=== PATIENT | female | born 1990 | race Caucasian/White ===

== ENCOUNTER 2018-09-02 17:26 | Inpatient (IN) | payer MEDICAID ==
[~2018-09-02] VITALS: Ht 160 cm; Wt 95.5 kg
[2018-09-14] MEDS ORDERED: ZOLOFT 100MG100 MG PO (15:41)
[2018-09-14] MEDS ORDERED: PRENATAL PO (15:41)
[2018-09-14] MEDS ORDERED: PRIL40 PO (15:42)
[2018-10-24] VITALS (52 sets, daily range): BP systolic 91–136; BP diastolic 50–94; PULSE 71–109; TEMP 97.7–99.2
[2018-10-24] MEDS ORDERED: UNISOM25 MG PO (07:20)
--- NOTE | 2018-10-24 07:24 | NUR ---
0700 PT ARRIVES AMB FOR INDUCTION OF LABOR BY DR HINES. GOWN ON AND TO BED WITH MONITORS PLACED, ASSESSMENT STARTED AND PLAN OF CARE DISCUSSE WITH PT.
[2018-10-24 08:44] LABS: BASO % 0.3 % (0.0-2.0); EOS # 0.1 (0.0-0.7); EOS % 0.9 % (0-4.0); GRAN # 7.6 (1.4-6.5); GRAN % 72.8 % (42.2-75.2); HEMOGLOBIN 11.4 g/dl (12.5-16.0); LYMPH # 1.8 (1.2-3.4); LYMPH % 17.3 % (20.0-51.0); MEAN CELL VOLUME 87 fl (80.0-100.0); MEAN CORPUSCULAR HEMOGLOBIN 29 pg (27.0-31.0); MEAN CORPUSCULAR HGB CONC 33 g/dl (33.0-37.0); MEAN PLATELET VOLUME 10.3 fl (7.4-10.4); MONO # 0.9 (0.1-0.6); MONO % 8.2 % (1.7-9.3); PLATELET COUNT 193 K/mm3 (130-400); RED BLOOD COUNT 3.96 M/mm3 (4.10-5.30); REDCELL DISTRIBUTION WIDTH-CV 14.1 % (11.5-14.5)
[2018-10-24 08:45] LABS: HEMATOCRIT 34.5 % (37.0-47.0)
--- NOTE | 2018-10-24 09:01 | NUR ---
0745 IV STARTED AND PEN AND PITOCIN ALSO STARTED AND IFUSING PER PROTOCOL.
--- NOTE | 2018-10-24 09:06 | NUR ---
0820 DR HINES HERE, AROM ATTEMPTED BUT NO RETURN OF FLUID NOTED. LIMITED US PERFOMRED TO COMFIRM VERTEX PRESENTATION. 0830 PT CALLS OUT WITH GUSH OF FLUID. PADS CHANGED AND MD INFORMED OF DEFINITE ROM.
[2018-10-24 09:08] LABS: TRICYCLIC ANTIDEPRESS URINE NEGATIVE
--- NOTE | 2018-10-24 09:26 | NUR ---
0915 ASSISTED TO BR AND CONTINUES TO LEAK CLEAR FLUID.
--- NOTE | 2018-10-24 09:48 | NUR ---
1944 RESTING QUIETLY DENIES NEEDS. RPEOSITIONED TO SIDE
--- NOTE | 2018-10-24 10:28 | NUR ---
1015 REPOSITIONED TO LL SIDE AND PADS CHANGED AGAIN. CONTINUES TO LEAK LARGE AMOUNT CLEAR FLUID.
--- NOTE | 2018-10-24 10:59 | NUR ---
1030 pitocin increased to 18. pt denies strong contractions, rate pain at a 1. family in room to see pt.,
--- NOTE | 2018-10-24 11:12 | NUR ---
1100 PITCOIN INCREASED TO 20 AND PT IS SITTING UPRIGHT IN BED. STATES STARTING TO HAVE MORE DISCOMFORT FROM CONTRACTIONS.
--- NOTE | 2018-10-24 12:21 | NUR ---
1130 PITOCIN INCREASED TO 22 mU/MIN.
--- NOTE | 2018-10-24 12:23 | NUR ---
1145 UP TO VOID AND THEN BACK TO BED., BRETHING WELL WITH EACH CONTRACTION AND MORE UNCOMFORTABLE. PT QUESTIONS PAIN OPTIONS OTHER THAN EPIDURAL. TAQUERIA EXPLAINED.
--- NOTE | 2018-10-24 14:19 | NUR ---
1240 PT REQUESTING STADOL FOR CONTROL OF PAIN. 1245 STAD[address] HINES ORDERS.
--- NOTE | 2018-10-24 14:21 | NUR ---
1300 PT HAS HAD VERY LITTLE RELIEF FROM STADOL DOSE. REQUESTING EPIDRUAL PLACEMENT AT THIS TIME. 1305 [employer] NOTIFIED OF PT REQUEST.
--- NOTE | 2018-10-24 14:22 | NUR ---
1315 WINDOW AND SIDING CRAFTSMAN IN ROOMAND POT REPOSITIONED SITTING AT EDGE OF BED. VERBALIZES UNDERSTANDING OF EPIDURAL CATH PLACEMENT QAND ACCEPTANCE FO SAME
--- NOTE | 2018-10-24 14:25 | NUR ---
1328 TEST DOSE GIVENAND TOLERATED WELL BY PT.
--- NOTE | 2018-10-24 14:26 | NUR ---
1345 RESTING AND MORE COMFORTABLE. ENCOURAGED TO REST/SLEEP IF ABLE. LIGHTS DIMMED AND ROOM QUIET.
--- NOTE | 2018-10-24 14:39 | NUR ---
1350 HEART RATE DOWN TO 90 WITH NO RETURN TO BASELINE WITH CONTRACTIONS. TO LEFT SIDE, PITOCIN OFF AND O2 ON PER NC. IV FLUID BOLUS. 1355 SVE SHOWS CHANGE TO 4-5 CM. FSE PLACED WITH GOOD TRACING OBTAINED. 1400 GOOD RETURN TO BASELINE AND ACCELERATIONS NOTED.
--- NOTE | 2018-10-24 14:45 | NUR ---
1415 IFETAL TRACING CONTINUES TO BE REACTIVE.
--- NOTE | 2018-10-24 14:46 | NUR ---
[address] HINES VIA CELL PHONE. REPORT OF RECENTS ISSUES AND ORDERS TO RESTART PITOCIN A 20. 1430 PITOCIN RESTARTED VIA ORDERS. O2 OFF/ VISITS WITH FAMILY.
--- NOTE | 2018-10-24 15:38 | NUR ---
1500 VISITS WITH FAMILY MEMBERS
--- NOTE | 2018-10-24 15:42 | NUR ---
1515 MCNAIR CATH PLACED EASILY WITH RETRUN OF CLEAR YELLOW URINE. STARTEING TO HAVE INCREASED BLOODY SHOW. KNOWS WHEN HAVING CONTRACTIONS BUT NOT PAINFUL.
--- NOTE | 2018-10-24 15:44 | NUR ---
1525 HEART RATE DOWN AFTER MCNAIR CATH PLACED. REPOSITIONEDNA ND O2 BACK ON A 8L/MASK. HAS GOOD VARIABILITY. PITOCIN OFF. 1530 HEART IMPROVED. PIT REMAINS OFF.
--- NOTE | 2018-10-24 16:14 | NUR ---
1550 HEART RATE REMAINS IN MID 110'S. DR HINES ON UNIT IN TO SEE PT AND SVE PERFORMED. 1600 PEN G DOSES #3 HUNG AND EPHEDERINE 10 MG IVP FOR LOWER BP.
--- NOTE | 2018-10-24 17:06 | NUR ---
1630 HEART RATE DIP AGAIN. REPOSITIONED TO RL MYNOR EWITH PEANUT BALL IN PLACE. BP STILL RUNNING LOWER SO EPHEDRINE 10 MG SIVP GIVEN
--- NOTE | 2018-10-24 17:21 | NUR ---
1700 DR HINES IN TO CHECK PT. SVE SHOWS GOOD CHANGE.
--- NOTE | 2018-10-24 17:26 | NUR ---
1715 RESTING WELL WITH FAMILY IN ROOM. DENIES PAIN. PITOCIN INCREASED TO 18.
--- NOTE | 2018-10-24 19:12 | NUR ---
1729 DR HINES IN TO DO SVE, NOW 8 CM. 1730 FHR DOWN TO 80-90'S, PT REPOSIIONED TO RT SIDE THEN BACK TO LT WITH NO CHANGE IN FHR. PITOCIN OFF, O2 REMAINS, IMPROVED WITH SCALP STIM. IV FLUIDS INCREASED. 1738 NO CHANGE IN FHR. CALLED, ADDITIONAL RN IN ROOM AND PT CLIPPED QUICKLY AND THEN TRANSFER VIA BED TO OR AT 1741 PER MONITOR STRIP TIME.
[2018-10-24] MEDS ORDERED: PERCOCET 325 MG1 TA2 PO (19:26)
[2018-10-24] MEDS ORDERED: MOTRIN 800800 MG/TAB PO (19:26)
--- NOTE | 2018-10-24 22:00 | NUR ---
183- Bedside report from DAY Wallace. Patient in PACU after fresh C/S. 1899- Patient to room 211 via bed. VSS. Bleeding WNL. 191- PP Recovery charting begins. 1999- Patient is uncomfortable during fundal checks. See eMAR. 2199- End of PP Recovery charting. VSS. Bleeding WNL. Peripad changed. Fundus firm and at the umbilicus. Abdomen noted to be firm. Patient remains uncomfortable during fundal checks. Epidural catheter removed. Patient tolerated well.
[2018-10-25] VITALS: BP 111/67; PULSE 80; TEMP 97.3
[2018-10-25 04:00] VITALS: BP 116/71; PULSE 88; TEMP 97.7
[2018-10-25 09:01] VITALS: BP 109/67; PULSE 75; TEMP 98.6
[2018-10-25 09:33] LABS: HEMOGLOBIN 10.2 g/dl (12.5-16.0)
[2018-10-25 16:35] VITALS: BP 112/75; PULSE 89; TEMP 97.7
[2018-10-25 20:45] VITALS: BP 90/57; PULSE 83; TEMP 97.8
[2018-10-26 07:29] VITALS: BP 100/55; PULSE 79; TEMP 98.1
[2018-10-26 15:53] VITALS: BP 102/64; PULSE 86; TEMP 98.8
[2018-10-26 21:15] VITALS: BP 113/76; PULSE 89; TEMP 98.5
[2018-10-27 08:00] VITALS: BP 114/79; PULSE 83; TEMP 97.9
--- NOTE | 2018-10-27 08:00 | NUR ---
Rests in bed, alert. Request pain medication. 814 Percocet 5/325 mg two given as ordered and per request.
--- NOTE | 2018-10-27 11:06 | NUR ---
Initial visit; Parents thanked Pin Drafting Machine Tender for offering congratulations and God's blessings for the of their son. Pin [employer]ing [employer] Tender thanked them for choosing [facility].
--- NOTE | 2018-10-27 12:00 | NUR ---
Rests in bed, alert. Denies any needs at this time.
--- NOTE | 2018-10-27 17:30 | NUR ---
Discharge instructions given. Verbalizes understanding. Percocet 5/325 mg two given per request and as ordered.
--- NOTE | 2018-10-27 18:30 | NUR ---
Ibuprofen 800 mg p.o., mylicon 160 mg given as ordered and per request.
== END 2018-10-27 18:35 | disposition home or self-care (01) | DRG 788 ==
LOC: EDSTATUS 10-15 06:21 → LDRO 10-15 17:25 → LDR 10-23 06:23 → OB 10-24 07:03 → LDR 10-24 07:03 → OB 10-24 19:00
PROVIDERS: ADMIT Obstetrics & Gynecology
PROC: 10D00Z1 Extraction of Products of Conception, Low, Open Approach (ICD-10-PCS; principal; 2018-10-24)
PROC: 3E033VJ Introduction of Other Hormone into Peripheral Vein, Percutaneous Approach (ICD-10-PCS; 2018-10-24)
PROC: 10907ZC Drainage of Amniotic Fluid, Therapeutic from Products of Conception, Via Natural or Artificial Opening (ICD-10-PCS; 2018-10-24)
DX: O48.0 Post-term pregnancy (principal); O76 Abnormality in fetal heart rate and rhythm complicating labor and delivery; Z3A.41 41 weeks gestation of pregnancy; Z37.0 Single live birth; O75.89 Other specified complications of labor and delivery; O99.824 Streptococcus B carrier state complicating childbirth; O69.2XX0 Labor and delivery complicated by other cord entanglement, with compression, not applicable or unspecified; O99.344 Other mental disorders complicating childbirth; F41.9 Anxiety disorder, unspecified; K58.9 Irritable bowel syndrome, unspecified; O99.214 Obesity complicating childbirth; F41.1 Generalized anxiety disorder; F41.0 Panic disorder [episodic paroxysmal anxiety]
CPT/HCPCS: J0595; J0690; J1885; J2270; J2540; J2590; J2704; J3010; J7120

== ENCOUNTER 2018-09-14 15:17 | Outpatient (CLI) | payer MEDICAID ==
[~2018-09-14] VITALS: Ht 165.1 cm; Wt 92.3 kg
[2018-09-14 15:33] VITALS: BP 121/76; PULSE 80; TEMP 98
[2018-09-14] MEDS ORDERED: ZOLOFT 100MG100 MG PO (15:41)
[2018-09-14] MEDS ORDERED: PRENATAL PO (15:41)
[2018-09-14] MEDS ORDERED: PRIL40 PO (15:42)
[2018-09-14 17:15] VITALS: BP 108/66; PULSE 82
== END 2018-09-14 17:15 | disposition home or self-care (01) ==
LOC: LDRO 15:17 → LDR 15:25 → LDRO 17:15
DX: O26.893 Other specified pregnancy related conditions, third trimester (principal); R25.2 Cramp and spasm; Z3A.35 35 weeks gestation of pregnancy
CPT/HCPCS: OP

== ENCOUNTER 2020-01-06 08:51 | Inpatient (IN) | payer MEDICAID ==
[~2020-01-06 08:51] MED LIST: MOTRIN 800800 MG/TAB PO; PERCOCET 325 MG1 TA2 PO; PRENATAL PO; PRIL40 PO; UNISOM25 MG PO; ZOLOFT 100MG100 MG PO
[2020-01-07] VITALS (19 sets, daily range): BP systolic 87–119; BP diastolic 57–80; PULSE 72–107; TEMP 98.4–98.8
[2020-01-07 06:36] LABS: BASO # 0.1 (0.0-0.2); BASO % 0.5 % (0.0-2.0); EOS # 0.1 (0.0-0.7); EOS % 0.7 % (0-4.0); GRAN # 7.2 (1.4-6.5); GRAN % 70.4 % (42.2-75.2); LYMPH # 2.1 (1.2-3.4); LYMPH % 20.6 % (20.0-51.0); MEAN CELL VOLUME 86 fl (80.0-100.0); MEAN CORPUSCULAR HEMOGLOBIN 29 pg (27.0-31.0); MEAN CORPUSCULAR HGB CONC 34 g/dl (33.0-37.0); MEAN PLATELET VOLUME 10.3 fl (7.4-10.4); MONO # 0.7 (0.1-0.6); MONO % 7.2 % (1.7-9.3); PLATELET COUNT 183 K/mm3 (130-400); RED BLOOD COUNT 4.17 M/mm3 (4.10-5.30); REDCELL DISTRIBUTION WIDTH-CV 14.3 % (11.5-14.5)
[2020-01-07 06:39] LABS: HEMATOCRIT 35.7 % (37.0-47.0)
[2020-01-07 06:52] LABS: TRICYCLIC ANTIDEPRESS URINE NEGATIVE
[2020-01-07] MEDS ORDERED: OSCAL 500 TAB500 MG PO (06:56)
[2020-01-07] MEDS ORDERED: PERCOCET 325 MG1 TA2 PO (07:07)
[2020-01-07] MEDS ORDERED: MOTRIN 800800 MG/TAB PO (07:07)
--- NOTE | 2020-01-07 11:02 | NUR ---
1030 fundal check performed by Ruthie Zendejas RN. Per RN, large amount of free bleeding and clots expressed. Peripad saturated. Dr. Alarcon on unit and notified. Per physician, 1 IM dose of methergine given. Pericare provided, clean bed pad and peripad placed. Dressing noted to have saturation on lower 1/3. Per Dr. Alarcon, dressing may be changed.
[2020-01-07 11:06] LABS: HEMOGLOBIN 10.7 g/dl (12.5-16.0)
[2020-01-07 11:14] LABS: HEMATOCRIT 32.2 % (37.0-47.0)
--- NOTE | 2020-01-07 13:57 | NUR ---
Pt up to bathroom independently at 1330. Son removed, pericare provided. New pad, panties, and gown placed. Pt ambulated back to room, then to nursery for bath.
--- NOTE | 2020-01-07 19:30 | NUR ---
pt states "I'm don't think 1 is going to be enough, can I have the second one?"
[2020-01-08 03:00] VITALS: BP 108/77; PULSE 70; TEMP 98.8
[2020-01-08 09:00] VITALS: BP 98/59; PULSE 72; TEMP 98.5
[2020-01-08 16:30] VITALS: BP 98/68; PULSE 64; TEMP 97.3
--- NOTE | 2020-01-08 16:48 | NUR ---
NATALYA responded the a social media director consult to the OB for the patient due to identified risk of presence of illegal drugs in infant. Per nurse the baby is "doing good" and receiving "normal care." Per nurse the mother had a "flat affect" in the AM. Per nurse she does not have concerns with baby going home with the family. NATALYA met with the patient and the patient's /FOB. 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 The patient states she has a car seat and the baby supplies she needs. The patient tested positive twice during on 08/25/2019 and 09/11/2019 for cannabinoids. The patient denies smoking marijuana and stated she was using CBD oil for shoulder pain which is why she tested positive. The patient was negative at admission. Cord Pending. NATALYA made a CPS # [id number]. NATALYA collaborated the above information with the patient's nurse.
[2020-01-08 21:15] VITALS: BP 125/79; PULSE 79; TEMP 97.4
--- NOTE | 2020-01-08 21:44 | NUR ---
PLANS TO SHOWER AND CLEAN AROUND STERISTRIPS
[2020-01-09 08:36] VITALS: BP 124/76; PULSE 74; TEMP 97.8
--- NOTE | 2020-01-11 09:46 | NUR ---
Patient's infant's cord blood was negative for illegal drugs in system.
== END 2020-01-09 11:20 | disposition home or self-care (01) | DRG 788 ==
LOC: OB 01-07 05:30 → LDR 01-07 16:13 → OB 01-09 11:20
PROVIDERS: ADMIT Obstetrics & Gynecology
PROC: 10D00Z1 Extraction of Products of Conception, Low, Open Approach (ICD-10-PCS; principal; 2020-01-07)
DX: O34.211 Maternal care for low transverse scar from previous cesarean delivery (principal); O69.1XX0 Labor and delivery complicated by cord around neck, with compression, not applicable or unspecified; O99.62 Diseases of the digestive system complicating childbirth; K21.9 Gastro-esophageal reflux disease without esophagitis; O99.214 Obesity complicating childbirth; O99.344 Other mental disorders complicating childbirth; F41.0 Panic disorder [episodic paroxysmal anxiety]; Z3A.40 40 weeks gestation of pregnancy; Z37.0 Single live birth
CPT/HCPCS: J0690; J1885; J2175; J2210; J2405; J2590; J3010; J7120

== ENCOUNTER 2023-07-15 08:07 | Emergency (ER) | payer MEDICAID ==
[~2023-07-15] VITALS: Ht 165.1 cm; Wt 90.9 kg
[~2023-07-15 08:07] MED LIST changes: +AMOXICILLIN 50500 MG PO; +LACRI-LUBE1 OIN OD; +OSCAL 500 TAB500 MG PO; +PREDNISONE10 MG PO; +ZOVIRAX800 MG PO
[2023-07-15 08:12] VITALS: BP 129/86; TEMP 98.1
[2023-07-15 08:33] LABS: COLLECTION METHOD CLEAN CATCH
[2023-07-15 09:00] LABS: SQUAMOUS EPITHELIAL 0-2 /hpf (0-10); URINE APPEARANCE Clear (CLEAR/HAZY); URINE BLOOD Negative (NEGATIVE); URINE COLOR Yellow (YELLOW); URINE GLUCOSE Negative (NEGATIVE); URINE KETONE Negative (NEGATIVE); URINE NITRATE Negative (NEGATIVE); URINE PROTEIN(semi-quant) Negative (NEGATIVE); URINE RBC None Seen /hpf (0-2); URINE UROBILINOGEN 0.2 E.U/dL (0.2-1.0)
[2023-07-15 09:09] VITALS: PULSE 77
[2023-07-15] MEDS ORDERED: FLAGYL500 MG PO (11:02)
== END 2023-07-15 09:09 | disposition home or self-care (01) ==
LOC: COL.ER 08:07
PROVIDERS: Family Medicine
DX: N76.0 Acute vaginitis (principal)

== ENCOUNTER 2023-07-25 13:08 | Outpatient (CLI) | payer BC, MEDICAID ==
[2023-07-25] VITALS (7 sets, daily range): BP systolic 103–120; BP diastolic 63–77; PULSE 72–100; TEMP 97.8
[~2023-07-25] VITALS: Ht 165.1 cm; Wt 97.0 kg
[~2023-07-25 13:08] MED LIST changes: +FLAGYL500 MG PO
[2023-07-25] MEDS ORDERED: PRISTIQ100 MG PO (13:20)
[2023-07-25] MEDS ORDERED: FLONASEALLERGY NS (13:21)
[2023-07-25] MEDS ORDERED: ALDACTONE 100M100 MG PO (13:22)
[2023-07-25 15:31] LABS: GLUCOSE,CSF 52 mg/dL (40-70); TOTAL PROTEIN,CSF 37 mg/dL (15-45)
[2023-07-25 16:08] LABS: CSF APPEARANCE CLEAR; CSF COLOR COLORLESS; CSF RBC 19 /mm3 (0-0)
--- NOTE | 2023-07-25 16:16 | NUR ---
pt tolerated recovery period well. vital signs remained within normal limits and pt tolerated po fluids throughout recovery. pt bandaid on back remained clean dry and intact during recovery and pt was assisted to main lobby via wheelchair upon discharge. pt remained free from acute concerns and complanits.
[2023-07-25 16:57] LABS: CSF MONONUCLEAR 100 % (70-100); CSF POLYMORPHONUCLEAR 0 % (0-6)
== END 2023-07-25 16:10 | disposition home or self-care (01) ==
LOC: COL.RAD 13:08
PROVIDERS: Psychiatry & Neurology Neurology
DX: G93.2 Benign intracranial hypertension (principal); R20.0 Anesthesia of skin